=== PATIENT | male | born 1940 | race Caucasian/White ===

== ENCOUNTER 2020-01-23 07:10 | Day surgery (SDC) | payer MEDICARE, OTHER ==
[2020-01-23] MEDS ORDERED: Propofol 200 MG/20 ML SDV IV ONE (07:11)
[2020-01-23] MEDS ORDERED: Lidocaine 1% PF 2 ML SDV INJECT ONE (07:11)
[2020-01-23] MEDS ORDERED: Lactated Ringers 1,000 ML IV SCH (07:30)
[2020-01-23] MEDS ORDERED: Sodium Chloride 0.9% 10 ML Syringe FLUSH PRN (07:30)
--- NOTE | 2020-01-23 09:22 | PCM.OPNOTE ---
- General Post-Op/Procedure Note Date of Surgery/Procedure: 01/23/20 Operative Procedure(s): c scope with bx hot loop and cold forcep Findings: polyps ascending colon polyp x1, transverse colon x2, descending colon x2, rectum x2 sigmoid diverticulosis Pre Op Diagnosis: personal hx of colon polyps Post-Op Diagnosis: polyps. ascending colon polyp x1, transverse colon x2, descending colon x2, rectum x2. sigmoid diverticulosis Anesthesia Technique: MAC Primary Surgeon: Tian Sutton Anesthesia Provider: Raffy Whitehead Pathology: polyps ascending colon polyp x1, transverse colon x2, descending colon x2, rectum x2 Complications: None Condition: Good Free Text/Narrative:: see dictation
[2020-01-23 10:00] VITALS: BP 145/82; PULSE 58
--- NOTE | 2020-01-23 12:28 | OR ---
DATE OF OPERATION: 01/23/2020 SURGEON: Tian Sutton MD PROCEDURE PERFORMED: Colonoscopy with cold forceps and hot loop snare biopsy. PREOPERATIVE DIAGNOSIS: Personal history of colon polyps. POSTOPERATIVE DIAGNOSES: Ascending colon polyp x1, transverse colon polyp x2, descending colon polyp x2, and rectal polyp x2. INDICATIONS FOR PROCEDURE: This is a 79-year-old white male with a personal history of colon polyps, who presents for followup scope. DESCRIPTION OF OPERATION: After an excellent IV sedation was administered, digital rectal exam was performed. No marked abnormality was noted. Flexible colonoscope was inserted and advanced to the cecum. Prep was excellent. The following findings were noted: Ascending colon, small polypoid lesion, biopsied with cold biopsy forceps and sent for permanent. Transverse colon, mid transverse in close proximity to each other were 2 pedunculated polyps, biopsied with the hot loop snare and submitted in one container. Descending colon, 2 polyps within a centimeter of each other, biopsied with the hot loop snare and sent for permanent. In the sigmoid colon, he had scattered diverticula. Rectum, 2 polyps just above the anal verge, and these were biopsied with cold biopsy forceps and sent for permanent. The patient tolerated the procedure well. Results will be sent on him via letter. /[id number] /MODL
== END 2020-01-23 10:12 | disposition home or self-care (01) ==
LOC: FB.SDS 07:10
PROVIDERS: ATTEND Surgery
DX: Z12.11 Encounter for screening for malignant neoplasm of colon (principal); D12.2 Benign neoplasm of ascending colon; D12.3 Benign neoplasm of transverse colon; D12.4 Benign neoplasm of descending colon; K62.1 Rectal polyp; K57.30 Diverticulosis of large intestine without perforation or abscess without bleeding; Z11.59 Encounter for screening for other viral diseases; E78.49 Other hyperlipidemia; E66.9 Obesity, unspecified; Z68.30 Body mass index [BMI] 30.0-30.9, adult; Z98.890 Other specified postprocedural states; Z88.1 Allergy status to other antibiotic agents; Z86.010 Personal history of colon polyps
CPT/HCPCS: 00811; 45380; 45385; 88305; J2001; J2704; J7120; U0002

== ENCOUNTER 2023-03-11 13:41 | Emergency (ER) | payer MEDICARE, OTHER ==
[2023-03-11 14:24] LABS: HEMATOCRIT 37.5 % (38.3-50.1); HEMOGLOBIN 12.8 g/dL (12.9-17.7); MEAN CORPUSCULAR HEMOGLOBIN 27.7 pg (27.0-33.3); MEAN CORPUSCULAR HGB CONC 34.1 g/dL (28.7-35.3); MEAN CORPUSCULAR VOLUME 81.1 fL (80.8-98.7); MEAN PLATELET VOLUME 7.6 fL (6.7-11.0); PLATELET COUNT,PLT 194 x10(3)uL (117-477); RED BLOOD CELL COUNT 4.62 x10(6)uL (3.90-5.90); RED CELL DISTRIBUTION WIDTH 14.4 % (12.4-15.0); WHITE BLOOD CELL COUNT,WBC 8.5 x10-3/uL (3.2-10.1)
[2023-03-11 14:32] LABS: BLOOD UREA NITROGEN,BUN 23 mg/dL (7-18); BUN/CREATININE RATIO 12.8 (9-20); CARBON DIOXIDE,CO2 24 mmol/L (21-32); CHLORIDE,CL 105 mmol/L (100-110); CREATININE 1.8 mg/dL (0.70-1.30); ESTIMATED GFR 37 mL/min (>60); GLUCOSE RANDOM 285 mg/dL (80-116); POTASSIUM,K 4.8 mmol/L (3.5-5.3); SODIUM,NA 141 mmol/L (135-145)
[2023-03-11 14:38] LABS: A/G RATIO 1.3; ALANINE AMINOTRANSFERASE,ALT 43 U/L (12-36); ALBUMIN 3.8 g/dL (3.2-4.6); ALKALINE PHOSPHATASE 62 IU/L (56-112); ASPARTATE AMNIOTRANSFERASE,AST 22 IU/L (5-25); BILIRUBIN TOTAL 0.3 mg/dL (0.1-1.3); PROTEIN TOTAL,TP 6.8 g/dL (6.0-8.0)
[2023-03-11 14:40] LABS: EST CRCL DRUG DOSING (CG) 32.19 mL/min
[2023-03-11 14:42] LABS: LYMPHOCYTES PERCENT MAN 10 % (13-37); MONOCYTES PERCENT MAN 1 % (4-12); SEG NEUTROPHILS PERCENT MAN 89 % (46-82)
[2023-03-11 15:55] VITALS: BP 147/73; PULSE 60
== END 2023-03-11 15:30 | disposition home or self-care (01) ==
LOC: FB.ED 13:41
DX: R07.9 Chest pain, unspecified (principal); D64.9 Anemia, unspecified; N18.9 Chronic kidney disease, unspecified; E78.5 Hyperlipidemia, unspecified; E78.00 Pure hypercholesterolemia, unspecified; Z88.1 Allergy status to other antibiotic agents; Z79.899 Other long term (current) drug therapy
CPT/HCPCS: 36415; 71045; 80053; 84484; 85025; 93005; 99285